=== PATIENT | male | born 2000 | race Caucasian/White ===

== ENCOUNTER 2018-06-20 15:22 | Emergency (ER) | payer SELFPAY ==
[~2018-06-20] VITALS: Ht 188 cm; Wt 71.8 kg
[2018-06-20 15:27] VITALS: BP 127/60
[2018-06-20] MEDS ORDERED: TETanus/Pertussis (Acell)/Diphther VAC/PF (Tdap-Adult) 0.5ml syringe IM ONE (17:00)
== END 2018-06-20 17:47 | disposition home or self-care (01) ==
LOC: ER 15:22
DX: S01.01XA Laceration without foreign body of scalp, initial encounter (principal); W45.8XXA Other foreign body or object entering through skin, initial encounter; Y93.89 Activity, other specified; Y92.89 Other specified places as the place of occurrence of the external cause; Y99.9 Unspecified external cause status
CPT/HCPCS: 12001; 90471; 90715; 99283